=== PATIENT | male | born 1990 | race Caucasian/White ===

== ENCOUNTER → 2018-04-15 | Outpatient (CLI) | payer BC, OTHER ==
[~2018-04-15] MED LIST: BACTRIM DS TAB1 EACH PO; DOXYCYCLINE 10100 MG PO; IBUPROFEN 600600 M1 PO; LORTAB 5 MG/5001 TAB PO; NOHOMEMEDICATIONS; PHENERGAN 25 MG25 M1 PO
--- NOTE | ~2018-04-15 | EKG ---
[address] [address] ELECTROCARDIOGRAM REPORT Name: BRET POTTER Room #: REG SARAHY Quezada#: [id number] Admission: 04/15/18 Attend Phys: Annabelle Ferrer MD Discharge: Date of : 86 Report #: [id number] THIS REPORT FOR: //name// [facility] Test Date: 2018-04-15 Test Time: 08:15:46 Pat Name: BRET POTTER Department: Room: Gender: Well Blower: : 1990 Requested By: Annabelle Ferrer Order Number: [id number] MD: Florencio Corbett Measurements Intervals [place] Rate: 76 P: 60 WV: 135 QRS: 49 QRSD: 86 T: 38 QT: 391 QTc: 440 Interpretive Statements Sinus rhythm Normal tracing No previous ECG available for comparison Electronically Signed On 04-15-2018 8:42:07 CDT by Florencio Corbett [email or web address] <ELECTRONICALLY SIGNED> By: Florencio Corbett MD, [facility] 04/15/18 0842 0815 Florencio Corbett MD, FACC /EPI
== END ==
LOC: CV 07:43
DX: Z01.818 Encounter for other preprocedural examination (principal)